=== PATIENT | female | born 1970 | race Hispanic/Latino ===

== ENCOUNTER 2020-05-16 19:57 | Emergency (ER) | payer SELFPAY ==
[2020-05-16 20:34] VITALS: BP 118/88
--- NOTE | 2020-05-16 20:35 | Emergency Department Report ---
ED Head Trauma HPI - General Stated complaint: HEAD INJURY/LEFT LEG PAIN Time Seen by Provider: 05/16/20 20:31 Source: patient - History of Present Illness MD Complaint: head injury (hit top of head on metal resulting in broken skin and now redness and swelling. Also on a unralated note would like us to look at her left leg because if feels a little "tight") Location: other Loss of Consciousness: no Place: home Radiation: none Severity: mild Quality: dull, aching Consistency: constant Provoking factors: none known Other Injuries: none - Related Data Previous Rx's Medication Instructions Recorded Last Taken Type Mupirocin [Bactroban 2%] 15 applic TP TID #15 gm 05/16/20 Unknown Rx Sulfamethoxazole/Trimethoprim 1 each PO BID #20 tablet 05/16/20 Unknown Rx [Bactrim Ds] cephALEXin [Keflex] 500 mg PO Q6HR #40 capsule 05/16/20 Unknown Rx Allergies/Adverse reactions: Allergies Allergy/AdvReac Type Severity Reaction Status Date / Time No Known Allergies Allergy Unverified 05/16/20 20:34 ED Review of Systems ROS: Stated complaint: HEAD INJURY/LEFT LEG PAIN Other details as noted in HPI Comment: All other systems reviewed and negative ED Past Medical Hx - Medications Home Medications: Home Medications Medication Instructions Recorded Confirmed Last Taken Type Mupirocin [Bactroban 2%] 15 applic TP TID #15 gm 05/16/20 Unknown Rx Sulfamethoxazole/Trimethoprim 1 each PO BID #20 tablet 05/16/20 Unknown Rx [Bactrim Ds] cephALEXin [Keflex] 500 mg PO Q6HR #40 capsule 05/16/20 Unknown Rx ED Physical Exam - General General appearance: alert, in no apparent distress - Expanded Head Exam Expanded Head exam: Present: contusion, general tenderness, other (redness to caudal aspect of head and wound with signs of infection .) - Eye Eye exam: Present: normal appearance - ENT ENT exam: Present: mucous membranes moist - Neck Neck exam: Present: normal inspection - Respiratory Respiratory exam: Present: normal lung sounds bilaterally. Absent: respiratory distress - Cardiovascular Cardiovascular Exam: Present: regular rate, normal rhythm. Absent: systolic murmur, diastolic murmur, rubs, gallop - GI/Abdominal GI/Abdominal exam: Present: soft, normal bowel sounds - Extremities Exam Extremities exam: Present: normal inspection - Back Exam Back exam: Present: normal inspection - Neurological Exam Neurological exam: Present: alert, oriented X3 - Psychiatric Psychiatric exam: Present: normal affect, normal mood - Skin Skin exam: Present: warm, dry, intact, normal color. Absent: rash ED Course Vital Signs 05/16/20 20:29 Temperature 98.4 F Pulse Rate 88 Respiratory 18 Rate Blood Pressure 118/88 O2 Sat by Pulse 95 Oximetry Critical care attestation.: If time is entered above; I have spent that time in minutes in the direct care of this critically ill patient, excluding procedure time. ED Disposition Clinical Impression: Cellulitis of scalp Disposition: DC-01 TO HOME OR SELFCARE Is pt being admited?: No Does the pt Need Aspirin: No Condition: Stable Instructions: Cellulitis, Adult, Wound Infection Prescriptions: Sulfamethoxazole/Trimethoprim [Bactrim Ds] 1 each PO BID #20 tablet Mupirocin [Bactroban 2%] 15 applic TP TID #15 gm cephALEXin [Keflex] 500 mg PO Q6HR #40 capsule Referrals: [facility] [Provider Group] - 3-5 Days
== END 2020-05-16 21:16 | disposition home or self-care (01) ==
LOC: ED 19:57
DX: L03.811 Cellulitis of head [any part, except face] (principal); Z79.899 Other long term (current) drug therapy
CPT/HCPCS: 99282

== ENCOUNTER 2021-09-28 20:14 | Emergency (ER) | payer SELFPAY ==
[2021-09-28] MEDS ORDERED: HALOPERIDOL LACTATE 5 MG/1 ML INJ IM PRN (23:32)
[2021-09-28] MEDS ORDERED: LORazepam 2 MG/ML VIAL IM PRN (23:32)
--- NOTE | 2021-09-28 23:46 | Emergency Department Report ---
ED General Adult HPI - General Chief complaint: Alcohol Stated complaint: Leave me alone, I am fine Time Seen by Provider: 09/28/21 23:27 Source: patient, EMS (Verbal report received from emergency medical services. EMS documentation not available at time of chart dictation ) Mode of arrival: Stretcher Limitations: Other (Alcohol intoxication) - History of Present Illness Initial comments: The patient was evaluated in the emergency department for symptoms described in the history of present illness. He/she was evaluated in the context of the global COVID-19 pandemic, which necessitated consideration that the patient might be at risk for infection with the virus that causes COVID-19. Institutional protocols and algorithms that pertain to the evaluation of patients at risk for COVID-19 are in a state of rapid change based on information released by regulatory bodies including the CDC and federal and state organizations. These policies and algorithms were followed during the patient's care in the emergency department. Please note that these policies, procedures and recommendations changed on a rapid basis. The patient is a 50-year-old female who was brought to the hospital by emergency medical services with an EMS articulated complaint of alcohol intoxication. There is no documented history of trauma. For unclear reasons, the patient was in a parking lot, yelling and drunk, and 911 was activated. EMS reports unremarkable vital signs in the field. The patient states that she is simply consuming recreational alcohol. She d enies physical pain. She is not homicidal or suicidal. She reports that she would like to have her family member come by and pick her up. She denies trauma. Patient was noted to be smoking cigarettes in the ambulance bay -: This afternoon - Related Data Previous Rx's Medication Instructions Recorded Last Taken Type Mupirocin [Bactroban 2%] 15 applic TP TID #15 gm 05/16/20 Unknown Rx Sulfamethoxazole/Trimethoprim 1 each PO BID #20 tablet 05/16/20 Unknown Rx [Bactrim Ds] cephALEXin [Keflex] 500 mg PO Q6HR #40 capsule 05/16/20 Unknown Rx Multivitamin with Folic Acid [[facility] 400 mcg PO QDAY #30 tablet 09/29/21 Unknown Rx One Daily Essential Tablet] chlordiazePOXIDE [Librium] 25 mg PO Q6H PRN #25 capsule 09/29/21 Unknown Rx Allergies Allergy/AdvReac Type Severity Reaction Status Date / Time No Known Allergies Allergy Unverified 05/16/20 20:34 ED Review of Systems ROS: Stated complaint: ETOH Other details as noted in HPI Constitutional: denies: fever Respiratory: denies: cough Cardiovascular: denies: chest pain Gastrointestinal: denies: abdominal pain Neurological: denies: headache Psychiatric: denies: homicidal thoughts, suicidal thoughts ED Past Medical Hx - Past Medical History Previous Medical History?: No - Surgical History Past Surgical History?: No - Social History Smoking Status: Current Every Day Smoker Substance Use Type: Alcohol - Medications Home Medications: Home Medications Medication Instructions Recorded Confirmed Last Taken Type Mupirocin [Bactroban 2%] 15 applic TP TID #15 gm 05/16/20 Unknown Rx Sulfamethoxazole/Trimethoprim 1 each PO BID #20 tablet 05/16/20 Unknown Rx [Bactrim Ds] cephALEXin [Keflex] 500 mg PO Q6HR #40 capsule 05/16/20 Unknown Rx Multivitamin with Folic Acid [[facility] 400 mcg PO QDAY #30 tablet 09/29/21 Unknown Rx One Daily Essential Tablet] chlordiazePOXIDE [Librium] 25 mg PO Q6H PRN #25 capsule 09/29/21 Unknown Rx ED Physical Exam - General Limitations: Other (Alcohol intoxication) General appearance: appears intoxicated, anxious - Head Head exam: Present: atraumatic, normocephalic - Eye Eye exam: Present: normal appearance, EOMI. Absent: nystagmus - ENT ENT exam: Present: normal exam, normal orophraynx, mucous membranes moist, normal external ear exam - Neck Neck exam: Present: normal inspection, full ROM. Absent: tenderness, meningismus - Respiratory Respiratory exam: Present: normal lung sounds bilaterally. Absent: respiratory distress, wheezes, rales, rhonchi, stridor, decreased breath sounds - Cardiovascular Cardiovascular Exam: Present: normal rhythm, tachycardia, normal heart sounds. Absent: bradycardia, irregular rhythm, systolic murmur, diastolic murmur, rubs, gallop - GI/Abdominal GI/Abdominal exam: Present: soft. Absent: distended, tenderness, guarding, rebound, rigid, pulsatile mass - Extremities Exam Extremities exam: Present: normal inspection, full ROM, normal capillary refill, other (2+ pulses noted in the bilateral upper and lower extremities. There is no palpable cord. negative Homans sign. Muscular compartments are soft. The pelvis is stable.). Absent: pedal edema, calf tenderness - Back Exam Back exam: Present: normal inspection, full ROM. Absent: tenderness, CVA tenderness (R), CVA tenderness (L), paraspinal tenderness, vertebral tenderness - Neurological Exam Neurological exam: Present: alert, other (Moving 4 extremities. 5 out of 5 strength in 4 extremities. Sensation is intact to light touch in 4 extremities. No facial droop. Tongue midline) - Psychiatric Psychiatric exam: Present: agitated, anxious. Absent: homicidal ideation, suicidal ideation - Skin Skin exam: Present: warm, dry, intact, normal color. Absent: rash ED Course Vital Signs 09/28/21 20:14 Temperature 98 F Pulse Rate 102 H Respiratory 18 Rate Blood Pressure 136/82 O2 Sat by Pulse 98 Oximetry - Reevaluation(s) Reevaluation #1: 09/29/21 01:06 Differential diagnosis, including but not limited to: Alcohol intoxication, dehydration, electrolyte derangement Assessment and plan: 50-year-old female with alcohol intoxication. She is awake and alert to name, moving 4 extremities and protecting her airway. There is no articulated or documented history of trauma, and there is no evidence of head or neck trauma. Laboratory studies demonstrate elevated blood alcohol level. Patient does not meet criteria for 1013 hold or involuntary confinement at this time. Patient will be placed on 2012, pending clinical sobriety. Head of bed elevation, aspiration precautions, reassess for clinical sobriety and discharge when sober. 09/29/21 03:51 No acute events. Patient breathing and no acute distress. Sober relative here to pick patient up. He will assume care of the patient. ED Medical Decision Making - Lab Data Result diagrams: 09/28/21 23:42 09/28/21 23:42 Vital Signs 09/28/21 20:14 Temperature 98 F Pulse Rate 102 H Respiratory 18 Rate Blood Pressure 136/82 O2 Sat by Pulse 98 Oximetry Lab Results 09/28/21 09/28/21 09/28/21 Range/Units 23:42 23:42 23:42 Hgb 15.2 H (10.1-14.3) gm/dl Hct 44.4 H (30.3-42.9) % Sodium 144 (137-145) mmol/L Potassium 3.8 (3.6-5.0) mmol/L Chloride 108.1 H (98-107) mmol/L Carbon Dioxide 20 L (22-30) mmol/L Anion Gap 20 mmol/L BUN 9 (7-17) mg/dL Creatinine 0.6 (0.6-1.2) mg/dL Estimated GFR > 60 ml/min BUN/Creatinine Ratio 15 % Glucose 111 H (65-100) mg/dL Calcium 8.9 (8.4-10.2) mg/dL Magnesium 1.70 (1.7-2.3) mg/dL Total Bilirubin < 0.20 (0.1-1.2) mg/dL AST < 5 L (5-40) units/L ALT < 5 L (7-56) units/L Alkaline Phosphatase 83 (35-129) units/L Total Creatine Kinase 89 (30-135) units/L Total Protein 7.3 (6.3-8.2) g/dL Albumin 4.2 (3.9-5) g/dL Albumin/Globulin Ratio 1.4 % HCG, Quant 1.35 (0-4) mIU/mL Salicylates (2.8-20.0) mg/dL Acetaminophen (10.0-30.0) ug/mL Plasma/Serum Alcohol (0-0.07) % 09/28/21 09/28/21 09/28/21 Range/Units 23:42 23:42 23:42 Hgb (10.1-14.3) gm/dl Hct (30.3-42.9) % Sodium (137-145) mmol/L Potassium (3.6-5.0) mmol/L Chloride (98-107) mmol/L Carbon Dioxide (22-30) mmol/L Anion Gap mmol/L BUN (7-17) mg/dL Creatinine (0.6-1.2) mg/dL Estimated GFR ml/min BUN/Creatinine Ratio % Glucose (65-100) mg/dL Calcium (8.4-10.2) mg/dL Magnesium (1.7-2.3) mg/dL Total Bilirubin (0.1-1.2) mg/dL AST (5-40) units/L ALT (7-56) units/L Alkaline Phosphatase (35-129) units/L Total Creatine Kinase (30-135) units/L Total Protein (6.3-8.2) g/dL Albumin (3.9-5) g/dL Albumin/Globulin Ratio % HCG, Quant (0-4) mIU/mL Salicylates < 0.3 L (2.8-20.0) mg/dL Acetaminophen 5.0 L (10.0-30.0) ug/mL Plasma/Serum Alcohol 0.26 H (0-0.07) % Critical care attestation.: If time is entered above; I have spent that time in minutes in the direct care of this critically ill patient, excluding procedure time. ED Disposition Clinical Impression: Alcohol intoxication Qualifiers: Complication of substance-induced condition: uncomplicated Qualified Code(s): F10.920 - Alcohol use, unspecified with intoxication, uncomplicated Disposition: HOME / SELF CARE / HOMELESS Is pt being admited?: No Does the pt Need Aspirin: No Condition: Good Instructions: Binge-Drinking Information, Adult Additional Instructions: Minimize/avoid consumption of alcohol, tobacco and smoke products. Follow-up with a primary care doctor within the next week. Take a multivitamin as directed. Take the Librium as needed for sensation of alcohol withdrawal. Do not drive or operate motor vehicles for the next 6 weeks or until cleared to do so by your primary care doctor. Please return to the emergency room right away with new pain, worsened pain, migration of pain, projectile vomiting, change in mental status, confusion, inability tolerate liquid feeds, new, worsened or different symptoms not present on the initial emergency room evaluation Referrals: [facility] [Outside] - 3-5 Days [facility] [Outside] - 3-5 Days
[2021-09-29] LABS: Hematocrit 44.4 % (30.3-42.9); Hemoglobin 15.2 gm/dl (10.1-14.3)
[2021-09-29 00:18] LABS: Albumin 4.2 g/dL (3.9-5); Blood Urea Nitrogen 9 mg/dL (7-17); Calcium 8.9 mg/dL (8.4-10.2); Hemolysis Index 29
[2021-09-29 00:19] LABS: BUN/Creatinine Ratio 15
[2021-09-29 01:02] LABS: Alanine Aminotransferase < 5 units/L (7-56)
[2021-09-29 04:26] VITALS: BP 127/86
== END 2021-09-29 04:00 | disposition home or self-care (01) ==
LOC: ED 20:14
DX: F10.129 Alcohol abuse with intoxication, unspecified (principal); F17.290 Nicotine dependence, other tobacco product, uncomplicated
CPT/HCPCS: 36415; 80053; 80320; 82550; 83735; 84702; 85014; 85018; 99284; G0480